=== PATIENT | male | born 1965 | race African-American/Black ===

== ENCOUNTER → 2018-01-01 | Day surgery (SDC) | payer OTHER ==
[~2018-01-01] VITALS: Ht 180.3 cm; Wt 89.0 kg
[~2018-01-01] MED LIST: AMLO10TA6 PO; ATOR10TA60 PO; BUPIVACAINE MPF 0.5% 30 ML VIAL. ONE; DEXAMETHASONE SOD PHOS 20 MG/5 ML VIAL. ONE; FINA5TAB4 PO; GLYCOPYRROLATE 1 MG/5 ML VIAL. ONE; HYDROmorphone 2 MG/ML VIAL IV PRN; IV RINGERS,LACTATED 1000ML 1,000 ML IV SCH; KETOROLAC 30 MG/ML INJ FOR OR. INJ ONE; LIDOCAINE 1% PF 2 ML VIAL. ID PRN; MORPHINE SULFATE 2 MG/ML VIAL. IV PRN; ONDANSETRON PF 4 MG/2 ML VIAL. IV PRN; ONDANSETRON PF 4 MG/2 ML VIAL. ONE; PHENYLEPHRINE 10 MG/ML VIAL. ONE; PHENYLEPHRINE in 0.9% NACL PF 1 MG/10 ML SYRINGE. IV ONE; PROCHLORPERAZINE 10 MG/2 ML VIAL. IV PRN; PROPOFOL 20 ML IV ONE; SEVOFLURANE 61 TO 120 MINUTES. IH ONE; SULI150T PO; TAMS0.4C2 PO; fentaNYL PF VIAL 100 MCG/2 ML VIAL IV PRN; fentaNYL PF VIAL 100 MCG/2 ML VIAL ONE; oxyCODONE/APAP 7.5/325 1 TAB TABLET ONE; oxyCODONE/APAP 7.5/325 1 TAB TABLET PO PRN
[2018-01-01] MEDS: fentaNYL PF VIAL 100 MCG/2 ML VIAL IV PRN ×2 (10:34→10:45)
[2018-01-01 12:05] VITALS: BP 129/75
--- NOTE | 2018-01-01 15:33 | PDOC4 ---
Operative Note Operative Note Date: 01/01/2018 Preoperative diagnosis: Comminuted right distal clavicle fracture with coracoclavicular ligament instability Postoperative diagnosis: Same Operative procedure: Operative reduction internal fixation right distal clavicle fracture with coracoclavicular ligament reconstruction Surgeon: Varsha Assist:Kraig Anesthesia: Gen. Estimated blood loss: 50 mL Complications: None Operative indications: Mr. Tabor is a 52-year-old male with coracoclavicular ligament disruption and a comminuted right distal clavicle fracture that is very painful on his dominant right shoulder. I had gone over treatment options with him both operative and nonoperative and he does want definitive treatment for the shoulder so we talked about the operative option of plating of the distal clavicle and reinforcement of the coracoclavicular ligament with a strong suture construct that ties it down to the area of the origin of the ligaments. I had gone over with him the recovery process and the expected restrictions of minimal lifting and gradual return to use and strength of the shoulder as tolerated. We talked about the difficulty of healing the clavicle fracture and the possibility of continued pain in this area as well as infection nerve or blood vessel damage medical or other anesthetic complications among others all his questions were answered he wishes to proceed with surgical evaluation and treatment Operative text: Patient was identified procedure verified patient placed in the supine position on the operating table. After adequate amounts of general anesthesia were administered he was placed in the Tmax head rest and beachchair position and the right shoulder and upper extremity were prepped and draped in standard sterile fashion. After timeout was performed patient procedure identified and verified and incision was made over the distal clavicle and subperiosteal dissection was carried out. The area of the fibrous malunion was removed sharply with scalpel and Iverson. Some comminuted fracture fragments were likewise removed from the distal portion of the clavicle adjacent to the acromioclavicular joint. The clavicle fracture actually turned longitudinal in the area of the coracoclavicular ligaments and after freshening up the fracture edges and area was rongeured for the passage of his toggle lock fixation device. To achieve anatomic positioning for passage the guidewire was passed through the superior aspect of the coracoid at its base bypassing slightly anterior to the Mal reduced clavicle fragment toggle lock was flipped without difficulty and the sutures were passed through the fracture site and an Acumed distal locking clavicle plate was placed and contoured anatomically. Anatomic reduction was carried out of the fracture and a single nonlocking screw was placed in the proximal shaft distal locking screws were placed in the distal fragment additional shaft nonlocking screws were placed excellent fixation and reduction of the clavicle were obtained and the toggle lock device was cinched down to anatomically reduce the still clavicle and acromioclavicular joint and excess suture was tied over the superior titanium button. Alignment of the clavicle and hardware fixation was verified under fluoroscopic guidance. Excellent stability was noted to palpation thorough irrigation carried out normal saline solution closure accomplished with buried Vicryl suture subcuticular Monocryl Steri-Strips and Mastisol sterile dressings were applied patient was returned to recovery room in stable condition having tolerated procedure well. Rehan Cornell nurse practitioner was present for the procedure assisted in patient positioning prepping draping retraction and skin closure EMMA DUNNE MD Jan 01, 2018 15:33
== END | disposition home or self-care (01) ==
LOC: SURG 05:48 → EEVIPCON 07:30
PROVIDERS: ATTEND Orthopaedic Surgery
DX: S42.031A Displaced fracture of lateral end of right clavicle, initial encounter for closed fracture (principal); S43.81XA Sprain of other specified parts of right shoulder girdle, initial encounter; M25.311 Other instability, right shoulder; I10 Essential (primary) hypertension; Z86.19 Personal history of other infectious and parasitic diseases; X58.XXXA Exposure to other specified factors, initial encounter; Y93.89 Activity, other specified; Y92.89 Other specified places as the place of occurrence of the external cause; Y99.8 Other external cause status
CPT/HCPCS: 23515; 23550; 76000; A7015; C1713; J0690; J1100; J1885; J2370; J2405; J2704; J3010; J3490; J7120